=== PATIENT | male | born 1980 | race Two or more races ===

== ENCOUNTER 2019-09-14 11:51 | Emergency (ER) | payer SELFPAY ==
[~2019-09-14] VITALS: Ht 170.2 cm; Wt 73.0 kg
[2019-09-14] MEDS ORDERED: KETOROLAC 30MG/ML VIAL IM ONE (15:45)
[2019-09-14 21:29] VITALS: BP 118/68
[2019-09-15] MEDS ORDERED: IBUPROFEN 600MG TABLET PO ONE (00:45)
[2019-09-15] MEDS ORDERED: DIAZEPAM 2 MG TABLET PO ONE (00:45)
== END 2019-09-15 01:48 | disposition home or self-care (01) ==
LOC: ER 12:09
DX: M54.5 Low back pain (principal); E05.90 Thyrotoxicosis, unspecified without thyrotoxic crisis or storm; Z98.890 Other specified postprocedural states
CPT/HCPCS: 72100; 96372; 99283; J1885